=== PATIENT | female | born 1945 | race Caucasian/White ===

== ENCOUNTER → 2016-12-05 | Outpatient (CLI) | payer OTHER | LOC: MMPC 09:00 | PROVIDERS: ATTEND Physician Assistant Medical | DX: R09.89 Other specified symptoms and signs involving the circulatory and respiratory systems (principal); J06.9 Acute upper respiratory infection, unspecified; Z77.22 Contact with and (suspected) exposure to environmental tobacco smoke (acute) (chronic) | CPT/HCPCS: 99214; G0463 ==

== ENCOUNTER → 2017-06-06 | Outpatient (CLI) | payer OTHER ==
[2017-06-06 10:20] LABS: BASOPHILS # (AUTO) 0.03 10*3/UL; BASOPHILS % (AUTO) 0.5 % (0-1); BILIRUBIN,URINE NEGATIVE (NEG); CLARITY,URINE CLEAR (CLEAR); COLOR,URINE YELLOW; EOSINOPHILS # (AUTO) 0.11 10*3/UL; EOSINOPHILS % (AUTO) 1.7 % (0-8); GLUCOSE, URINE (UA) NEGATIVE (NEG); HEMATOCRIT 39.9 % (37.0-47.0); HEMOGLOBIN 13.2 g/dL (12.0-16.0); LYMPHOCYTES # (AUTO) 1.27 10*3/uL; MEAN CORPUSCULAR HEMOGLOBIN 29.3 PG (27-31); MEAN CORPUSCULAR HGB CONC 33.1 g/dL (33-37); MEAN CORPUSCULAR VOLUME 88.7 FL (81-99); MEAN PLATELET VOLUME 10.3 FL (7.4-12.2); MONOCYTES # (AUTO) 0.57 10*3/UL (0.3-0.8); MONOCYTES % (AUTO) 8.9 % (5-15); NEUTROPHILS # (AUTO) 4.44 10*3/UL; NEUTROPHILS % (AUTO) 68.9 % (50-80); NITRATE,URINE NEGATIVE (NEG); OCCULT BLOOD,URINE NEGATIVE (NEG); PROTEIN,URINE NEGATIVE (NEG)
[2017-06-06 10:21] LABS: PLATELET MORPHOLOGY COMMENT NORMAL MORPHOLOGY (NORM); RBC MORPHOLOGY COMMENT NORMAL MORPHOLOGY (NORM); URINE SAMPLE TYPE CLEAN CATCH URINE; WBC MORPHOLOGY COMMENT NORMAL MORPHOLOGY (NORM)
[2017-06-06 10:22] LABS: BUN/CREATININE RATIO 23.75 (6-20); CALCIUM 9.4 mg/dL (8.7-10.7)
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
== END ==
LOC: CT 09:46
PROVIDERS: ATTEND Nurse Practitioner Family
DX: S20.211A Contusion of right front wall of thorax, initial encounter (principal); V49.9XXA Car occupant (driver) (passenger) injured in unspecified traffic accident, initial encounter; M25.511 Pain in right shoulder; M79.604 Pain in right leg; M79.641 Pain in right hand; R06.02 Shortness of breath; M54.2 Cervicalgia; J98.11 Atelectasis
CPT/HCPCS: 36415; 70450; 71260; 72125; 73200; 74177; 80053; 81003; 84100; 85025; 99214; G0463

== ENCOUNTER → 2017-06-08 | Outpatient (CLI) | payer OTHER ==
--- NOTE | 2017-06-08 11:24 | DI ---
XR RIBS 3VW B/L,06/08/2017 8:44 AM: Clinical History: Right rib pain Previous Exam: None at this facility. Findings: Multiple views of the right ribs are obtained, and demonstrate mild diffuse osteopenia. Surrounding soft tissues are unremarkable. Right lung is unremarkable. There are degenerative changes involving the right glenohumeral joint. Mild degenerative changes are seen. Impression: No fractures.
== END ==
LOC: MOB RAD 08:53
PROVIDERS: ATTEND Nurse Practitioner Family
DX: R07.81 Pleurodynia (principal); V49.9XXA Car occupant (driver) (passenger) injured in unspecified traffic accident, initial encounter
CPT/HCPCS: 71110